=== PATIENT | male | born 1980 | race Hispanic/Latino ===

== ENCOUNTER 2018-07-17 19:12 | Observation (INO) | payer OTHER ==
[~2018-07-17] VITALS: Ht 172.7 cm; Wt 89.8 kg
[2018-07-17 21:15] LABS: BASOPHILS # (AUTO) 0.1 (0.0-0.1); BASOPHILS % 0.7 % (0.0-1.0); EOSINOPHILS # (AUTO) 0.1 (0.0-0.4); EOSINOPHILS % 1.3 % (0.0-6.0); HEMATOCRIT 41.9 % (38.2-49.6); HEMOGLOBIN 14.4 g/dL (14.0-18.0); LYMPHOCYTES # (AUTO) 2.7 (1.0-3.2); LYMPHOCYTES % 34.9 % (18.0-39.1); MEAN CORPUSCULAR HEMOGLOBIN 30.6 pg (28-32); MEAN CORPUSCULAR HGB CONC 34.4 g/dL (31-35); MEAN CORPUSCULAR VOLUME 89.1 fL (81-99); MONOCYTES # (AUTO) 0.6 (0.2-0.8); MONOCYTES % 8.4 % (4.4-11.3); NEUTROPHILS # (AUTO) 4.2 (2.1-6.9); NEUTROPHILS % 54.4 % (38.7-80.0); PLATELET COUNT 157 x10e3/uL (140-360)
[2018-07-17 21:24] LABS: INR 0.87; PARTIAL THROMBOPLASTIN TIME 30.6 seconds (23.8-35.5); PROTHROMBIN TIME 12.6 seconds (11.9-14.5)
--- NOTE | 2018-07-17 21:28 | Diagnostic Imaging Report ---
EXAMINATION: CHEST SINGLE (PORTABLE) INDICATION: ^chest pain ^Y COMPARISON: None FINDINGS: AP view TUBES and LINES: None. LUNGS: Lungs are well inflated. Lungs are clear. There is no evidence of pneumonia or pulmonary edema. PLEURA: No pleural effusion or pneumothorax. HEART AND MEDIASTINUM: The cardiomediastinal silhouette is unremarkable. BONES AND SOFT TISSUES: No acute osseous lesion. Soft tissues are unremarkable. UPPER ABDOMEN: No free air under the diaphragm. IMPRESSION: No acute thoracic abnormality. Signed by: Dr. Arjun Chavarria MD on 07/17/2018 9:24 PM
[2018-07-17 21:30] LABS: ALANINE AMINOTRANSFERASE 37 IU/L (0-55); ALBUMIN 4.2 g/dL (3.5-5.0); ALBUMIN/GLOBULIN RATIO 1.5 (0.8-2.0); ALKALINE PHOSPHATASE 49 IU/L (40-150); ANION GAP 6.7 mmol/L (8-16); BLOOD UREA NITROGEN 14 mg/dL (7-26); BUN/CREATININE RATIO 12 (6-25); CALCIUM 9.8 mg/dL (8.4-10.2); CARBON DIOXIDE 26 mmol/L (22-29); CHLORIDE 105 mmol/L (98-107); CREATINE KINASE 73 IU/L (30-200); EST GLOMERULAR FILTRATION RATE > 60 ML/MIN (60-); GLUCOSE 91 mg/dL (74-118); POTASSIUM 3.7 mmol/L (3.5-5.1); SODIUM 134 mmol/L (136-145)
[2018-07-17] MEDS ORDERED: ATORVASTATIN CA20 MG PO (21:59)
--- NOTE | 2018-07-17 22:05 | Diagnostic Imaging Report ---
EXAMINATION: Head CT without contrast. HISTORY:Headache. COMPARISON:None. TECHNIQUE: Multidetector axial images were obtained from the foramen magnum to the vertex without contrast. The images were reconstructed using brain and bone algorithms. Thin section brain images were reformatted into coronal and sagittal planes. Dose modulation, iterative reconstruction, and/or weight based adjustment of the mA/kV was utilized to reduce the radiation dose to as low as reasonably achievable. Intravenous contrast: None IMAGE QUALITY: Acceptable. FINDINGS: Skull/scalp: No lytic or blastic. lesions. No surgical changes. Parenchyma: No abnormal density. No acute hemorrhage, mass or acute major vascular territorial infarct. Arteries: No density suggestive of thrombosis. Dural sinuses: No abnormal density suggestive of thrombosis. Ventricles: No hydrocephalus or displacement. Extra-axial spaces: No abnormal density. Brain volume: Normal for age. Craniocervical junction: No mass, Chiari malformation, or basilar invagination. Sella: No mass. Paranasal/mastoid sinuses: Imaged portions unremarkable. IMPRESSION: No intracranial abnormality. Signed by: Dr. Mi Vega M.D. on 07/17/2018 10:02 PM
--- OUTSIDE RECORDS SUMMARY | 2018-07-17 22:28 | XMS REPORT ---
Author Author [facility] Address Unknown Phone Unavailable Care Team Providers Care Central Office Equipment Installer Name Role Phone Gian PATRICIO Unavailable Unavailable Problems This patient has no known problems. Allergies, Adverse Reactions, Alerts This patient has no known allergies or adverse reactions. Medications This patient has no known medications. Results Test Description Test Time Test Comments Text Results Atomic Results Result Comments CT BRAIN WO 2018-07-17 21:59:00 [place] [id number] Patient Name: JULEE MEHTA MR #: [id number] : 1980 Age/Sex: 38/M Req #: [id number] Adm Physician: Ordered by: EMELIA PATRICIO MD Report #: [id number] Location: ER Room/Bed: Procedure: [id number] CT/CT BRAIN WO Exam Date: 07/17/18 Exam Time: 2107 REPORT STATUS: Signed EXAMINATION: Head CT without contrast. HISTORY:H eadache. COMPARISON:None. TECHNIQUE: Multidetector axial images were obtained from the foramen magnum to the vertex without contrast. The images were reconstructed using brain and bone algorithms. Thin section brain images were reformatted into coronal and sagittal planes. Dose modulation, iterative reconstruction, and/or weight based adjustment of the mA/kV was utilized to reduce the radiation dose to as low as reasonably achievable. Intravenous contrast: None IMAGE QUALITY: Acceptable. FINDINGS: Skull/scalp: No lytic or blastic. lesions. No surgical changes. Parenchyma: No abnormal density. No acute hemorrhage, mass or acute major vascular territorial infarct. Arteries: No density suggestive of thrombosis. Dural sinuses: No abnormal density suggestive of thrombosis. Ventricles: No hydrocephalus or displacement. Extra- axial spaces: No abnormal density. Brain volume: Normal for age. Craniocervical junction: No mass, Chiari malformation, or basilar invagination. Sella: No mass. Paranasal/mastoid sinuses: Imaged portions unremarkable. IMPRESSION: No intracranial abnormality. Signed by: Dr. Mi Vega M.D. on 07/17/2018 10:02 PM Dictated By: MI VEGA MD 01 Transcribed By: BERTHA on 07/17/182201 COPY TO: EMELIA PATRICIO MD CHEST SINGLE (PORTABLE) 2018-07-17 21:24:00 [place] [id number] Patient Name: JULEE MEHTA MR #: [id number] : 1980 Age/Sex: 38/M Req #: [id number] Adm Physician: Ordered by: EMELIA PATRICIO MD Report #: [id number] Location: ER Room/Bed: Procedure: [id number] DX/CHEST SINGLE (PORTABLE) Exam Date: Exam Time: REPORT STATUS: Signed EXAMINATION: CHEST SINGLE (PORTABLE) INDICATION: chest pain Y COMPARISON: None FINDINGS: AP view TUBES and LINES: None. LUNGS: Lungs are well inflated. Lungs are clear. There is no evidence of pneumonia or pulmonary edema. PLEURA: No pleural effusion or pneumothorax. HEART AND MEDIASTINUM: The cardiomediastinal silhouette is unremarkable. BONES AND SOFT TISSUES: No acute osseous lesion. Soft tissues are unremarkable. UPPER ABDOMEN: No free air under the diaphragm. IMPRESSION: No acute thoracic abnormality. Signed by: Dr. Arjun Serna MD on 07/17/2018 9:24 PM Dictated By: ARJUN SERNA MD 23 Transcribed By: BERTHA on 07/17/182123 COPY TO: EMELIA PATRICIO MD
[2018-07-17] MEDS ORDERED: ONDANSETRON HCL INJ 2MG/ML 2ML 2 MG/ML VIAL IV PRN (22:30)
[2018-07-17] MEDS ORDERED: SODIUM CHLORIDE FLUSH 10 ML SYR INJ PRN (22:30)
[2018-07-17] MEDS ORDERED: NITROGLYCERIN 0.4 MG SUBL SL PRN (22:30)
--- NOTE | 2018-07-18 | NUR ---
Patient arrived to the unit via wheelchair. Report was taken from OLVIN Sage nurse. patient in no pain or distress. call light within reach.
[2018-07-18 00:15] VITALS: BP 118/73
[2018-07-18 01:00] VITALS: BP 118/73
[2018-07-18 01:05] VITALS: BP 118/73
[2018-07-18] MEDS ORDERED: PNEUMOCOCCAL VACCINE POLYVALENT 23 MCG/0.5 ML VIAL IM SCH (01:05)
[2018-07-18] MEDS ORDERED: INFLUENZA VIRUS VAC SPLIT INJ 0.5 ML SYR IM SCH (01:05)
--- NOTE | 2018-07-18 03:32 | NUR ---
Call light within reach. No pain or distress. Patient asleep in bed.
[2018-07-18 05:56] LABS: CREATINE KINASE MB 0.5 ng/mL (0-5.0)
[2018-07-18 06:00] VITALS: BP 116/66
[2018-07-18 06:20] LABS: CHOL/HDL RATIO 3.9 (3.9-4.7)
[2018-07-18] MEDS ORDERED: NORVASC5 MG PO (06:56)
[2018-07-18] MEDS ORDERED: ASPIRIN EC81 MG PO (06:56)
[2018-07-18] MEDS ORDERED: ATORVASTATIN CA20 MG PO (06:56)
[2018-07-18] MEDS ORDERED: FAMOTIDINE20 MG PO (06:56)
--- NOTE | 2018-07-18 07:03 | NUR ---
History and Physical PCP none cc: chest discomfort HPI: 38yoM, developed intermittent left sided chest discomfort for past 2 weeks, with burning sensation on left arm. no SOB; some dizziness; No symptoms currently; Hy cigs; DId take aspirin yesterday. PMH: HLD, HTG, former smoker PSHx: none Allergies; see emr FH: CAD in mother at age 79, with bypass. no CA in family SH; quit cigs 2002. Meds; see MAR ROS: no f/c/s/N/V/D/sob/leg pain/back pain/vision changes/skin rash v/s; rev'd PE: NAD anicteric ns1s2 mod bs soft nt nd no e/t a&ox3; pham skin dry n. affect labs/meds; rev'd A/P: 38yoM Atypical CP Obesity BMI 30.1 Former smoker SInus bradycardia HLD PLAN All symptoms resolved CE negative; Hba1c is 5.7, LDL 44. PreDM BEATRIZ risk score = 1 for HLD/former smoker=> 5% risk of event in next 2 weeks. D/C home; f/u with me in 1 week d/c home f/u 1 week Stable and IMproved d/c >35mins Wilfrido Ornelas MD, PHD.
[2018-07-18] MEDS ORDERED: FAMOTIDINE 20 MG TAB PO SCH (07:30)
--- NOTE | 2018-07-18 07:37 | NUR ---
REPORT GIVEN TO ONCOMING NURSE. CALL LIGHT WITHIN REACH.
[2018-07-18] MEDS ORDERED: ASPIRIN 81 MG ENTERIC COATED PO SCH (09:00)
[2018-07-18] MEDS ORDERED: AMLODIPINE BESYLATE 5 MG TAB PO SCH (09:00)
[2018-07-18] MEDS ORDERED: ENOXAPARIN SOD INJ 40 MG/0.4 ML SYR SC SCH (17:00)
[2018-07-18] MEDS ORDERED: ATORVASTATIN 20 MG TAB PO SCH (21:00)
== END 2018-07-18 07:40 | disposition home or self-care (01) ==
LOC: ER 19:12 → ERHOLD 22:25 → IMCU 23:58
PROVIDERS: ADMIT Internal Medicine; ATTEND Internal Medicine
DX: R07.89 Other chest pain (principal); Z87.891 Personal history of nicotine dependence; E78.5 Hyperlipidemia, unspecified; E66.9 Obesity, unspecified; Z68.30 Body mass index [BMI] 30.0-30.9, adult; R00.1 Bradycardia, unspecified
CPT/HCPCS: 36415 ×2; 70450; 71045; 80053; 80061; 82550 ×2; 82553 ×2; 83036; 84484 ×2; 85025; 85379; 85610; 85730; 93005; 99284; G0378 ×2

== ENCOUNTER 2021-10-12 01:09 | Emergency (ER) | payer OTHER ==
[~2021-10-12] VITALS: Ht 172.7 cm; Wt 90.7 kg
[~2021-10-12 01:09] MED LIST: ASPIRIN EC81 MG PO; ATORVASTATIN CA20 MG PO; FAMOTIDINE20 MG PO; NORVASC5 MG PO
[2021-10-12 01:31] LABS: BASOPHILS # (AUTO) 0.1 (0.0-0.1); BASOPHILS % 0.7 % (0.0-1.0); EOSINOPHILS # (AUTO) 0.1 (0.0-0.4); EOSINOPHILS % 1.9 % (0.0-6.0); HEMATOCRIT 42.9 % (38.2-49.6); HEMOGLOBIN 14.2 g/dL (14.0-18.0); LYMPHOCYTES # (AUTO) 2.5 (1.0-3.2); LYMPHOCYTES % 36.7 % (18.0-39.1); MEAN CORPUSCULAR HEMOGLOBIN 30.9 pg (28-32); MEAN CORPUSCULAR HGB CONC 33.1 g/dL (31-35); MEAN CORPUSCULAR VOLUME 93.3 fL (81-99); MONOCYTES # (AUTO) 0.6 (0.2-0.8); MONOCYTES % 8.2 % (4.4-11.3); NEUTROPHILS # (AUTO) 3.6 (2.1-6.9); NEUTROPHILS % 52.4 % (38.7-80.0); PLATELET COUNT 157 x10e3/uL (140-360); RED CELL DISTRIBUTION WIDTH 11.9 % (11.7-14.4)
[2021-10-12 01:44] LABS: CLARITY,URINE CLEAR (CLEAR); COLOR,URINE YELLOW (YELLOW)
[2021-10-12 01:45] LABS: KETONES,URINE NEGATIVE (NEGATIVE); LEUKOCYTE ESTERASE ,URINE NEGATIVE (NEGATIVE); NITRITE,URINE NEGATIVE (NEGATIVE); PROTEIN,URINE DIPSTICK NEGATIVE (NEGATIVE); URINE UROBILINOGEN 0.2 mg/dL (0.2 - 1)
[2021-10-12 01:47] LABS: AMYLASE 144 U/L (25-125); LIPASE 33 U/L (8-78)
[2021-10-12 01:50] LABS: ANION GAP 11.9 mmol/L (8-16); BLOOD UREA NITROGEN 12 mg/dL (7-26); BUN/CREATININE RATIO 10 (6-25); CALCIUM 9.3 mg/dL (8.4-10.2); CARBON DIOXIDE 25 mmol/L (22-29); CHLORIDE 106 mmol/L (98-107); CREATINE KINASE 83 IU/L (30-200); CREATININE, SERUM 1.19 mg/dL (0.72-1.25); EST GLOMERULAR FILTRATION RATE 67 ML/MIN (60-); GLUCOSE 97 mg/dL (74-118); POTASSIUM 3.9 mmol/L (3.5-5.1); SODIUM 139 mmol/L (136-145)
[2021-10-12 01:54] LABS: BACTERIA,URINE RARE /HPF; EPITHELIAL CELLS,URINE FEW /LPF; WBC,URINE (MAN) 0-5 /HPF (0-5)
[2021-10-12 02:54] VITALS: BP 119/97
== END 2021-10-12 02:56 | disposition home or self-care (01) ==
LOC: ER 01:14
DX: R10.12 Left upper quadrant pain (principal); K59.00 Constipation, unspecified; E78.5 Hyperlipidemia, unspecified
CPT/HCPCS: 36415; 71045; 74018; 80048; 81001; 82150; 82550; 82553; 83690; 84484; 85025; 93005; 99284